=== PATIENT | female | born 1960 | race Hispanic/Latino ===

== ENCOUNTER 2021-05-02 08:46 | Emergency (ER) | payer OTHER ==
[~2021-05-02] VITALS: Ht 157.5 cm; Wt 55.8 kg
[2021-05-02 08:48] VITALS: BP 106/51
[2021-05-02 09:09] LABS: BASOPHILS % (AUTO) 0.2 % (0.0-5.0); EOSINOPHILS % (AUTO) 0.9 % (0.0-8.0); HEMATOCRIT 32.1 % (36-48); LYMPHOCYTES % (AUTO) 6.1 % (21.0-51.0); MEAN CORPUSCULAR HEMOGLOBIN 32.1 pg (27.0-33.0); MEAN CORPUSCULAR HGB CONC 31.8 g/dL (32.0-36.0); MEAN CORPUSCULAR VOLUME 100.9 fL (79-99); MONOCYTES % (AUTO) 11.1 % (3.0-13.0); NEUTROPHILS % (AUTO) 80.9 % (40.0-77.0); PLATELET COUNT (AUTO) 49 K/uL (130-400); RED BLOOD CELL COUNT(AUTO) 3.18 MIL/uL (4.00-5.50); RED CELL DISTRIBUTION WIDTH 15.1 % (11.0-15.5); WHITE BLOOD COUNT (AUTO) 10.8 K/uL (4.8-10.8)
[2021-05-02 09:20] LABS: INR 1.23 (0.85-1.15); PROTHROMBIN TIME 13.2 SEC (9.6-11.6)
[2021-05-02 09:22] LABS: CREATININE 4.7 mg/dL (0.5-1.5); PARTIAL THROMBOPLASTIN TIME 39.1 SEC (26.3-35.5); POTASSIUM 4.1 mmol/L (3.5-5.1)
[2021-05-02 09:31] LABS: B-TYPE NATRIURETIC PEPTIDE 167 pg/mL (0-100)
[2021-05-02 09:40] LABS: ALBUMIN 2.4 g/dL (3.5-5.0); BILIRUBIN,TOTAL 1.7 mg/dL (0.2-1.0); TOTAL PROTEIN, SERUM 6.8 g/dL (6.0-8.3)
[2021-05-02 10:35] VITALS: BP 108/49
[2021-05-02 12:40] VITALS: BP 112/53
[2021-05-02 15:51] VITALS: BP 99/47
[2021-05-02 17:20] LABS: APPEARANCE BODY FLUID SLIGHTLY CLOUDY (CLEAR); COLOR,BODY FLUID YELLOW (LT YELLOW); SPECIMENTYPE,BODY FLUID ASCITES; TOTAL VOLUME,BODY FLUID 9800 mL
[2021-05-02 17:21] LABS: BODY FLUID RBC 885 /cu. mm.; BODY FLUID WBC 117 /cu. mm.
[2021-05-02 17:37] LABS: BF LYMPHOCYTE 38 %; BF MESOTHELIAL 5 %; BF MONOCYTE 13 %
== END 2021-05-02 17:10 | disposition home or self-care (01) ==
LOC: EDH 08:46
DX: R18.8 Other ascites (principal); R06.00 Dyspnea, unspecified; D69.6 Thrombocytopenia, unspecified; D68.9 Coagulation defect, unspecified; E11.22 Type 2 diabetes mellitus with diabetic chronic kidney disease; N18.6 End stage renal disease; Z99.2 Dependence on renal dialysis
CPT/HCPCS: 36415; 49083; 71045; 80053; 82550; 83880; 84484; 85025; 85610; 85730; 87071; 87205; 89051; 93005; 96365; 99285; C1729; P9046

== ENCOUNTER 2021-06-02 02:00 | Inpatient (IN) | payer OTHER ==
[2021-06-02] VITALS (16 sets, daily range): BP systolic 82–128; BP diastolic 48–78
[~2021-06-02] VITALS: Ht 152.4 cm; Wt 63.9 kg
[2021-06-02 02:52] LABS: BASOPHILS % (AUTO) 0.1 % (0.0-5.0); EOSINOPHILS % (AUTO) 1.1 % (0.0-8.0); HEMATOCRIT 31.6 % (36-48); LYMPHOCYTES % (AUTO) 10.3 % (21.0-51.0); MEAN CORPUSCULAR HEMOGLOBIN 31.2 pg (27.0-33.0); MEAN CORPUSCULAR VOLUME 97.5 fL (79-99); MONOCYTES % (AUTO) 7.2 % (3.0-13.0); NEUTROPHILS % (AUTO) 79.1 % (40.0-77.0); PLATELET COUNT (AUTO) 54 K/uL (130-400); RED BLOOD CELL COUNT(AUTO) 3.24 MIL/uL (4.00-5.50); RED CELL DISTRIBUTION WIDTH 16.3 % (11.0-15.5)
[2021-06-02 03:04] LABS: CREATININE 5.7 mg/dL (0.5-1.5); POTASSIUM 4.2 mmol/L (3.5-5.1)
[2021-06-02 03:14] LABS: ALBUMIN 2.3 g/dL (3.5-5.0); BILIRUBIN,TOTAL 1.8 mg/dL (0.2-1.0); TOTAL PROTEIN, SERUM 7.5 g/dL (6.0-8.3)
[2021-06-02] MEDS ORDERED: BUMETANIDE 2.5MG/10ML VIAL IVP SCH (04:30)
[2021-06-02] MEDS ORDERED: NITROGLYCERIN 0.4 MG SL TAB SL PRN (05:00)
[2021-06-02] MEDS ORDERED: ONDANSETRON 4MG INJ IV PRN (05:00)
[2021-06-02] MEDS ORDERED: ACETAMINOPHEN 325 MG TAB PO PRN (05:00)
[2021-06-02 05:07] LABS: ABG BASE EXCESS -2.1 mmol/L (-2.0-3.0); ABG HCO3 22.9 mmol/L (21.0-28.0); ABG OXYGEN SATURATION 95.2 % (95.0-99.0); ABG PCO2 41 mmHg (32-45)
[2021-06-02 05:25] LABS: MAGNESIUM 2.1 mg/dL (1.80-2.40)
[2021-06-02 05:37] LABS: CRP QUANTITATIVE 162.5 mg/L (0.00-9.0)
[2021-06-02] MEDS ORDERED: DEXTROSE 50%-WATER 50 ML DISP.SYRIN IV PRN (08:30)
[2021-06-02] MEDS ORDERED: GLUCAGON 1MG KIT 1 MG ML IM PRN (08:30)
[2021-06-02] MEDS ORDERED: PANTOPRAZOLE 40 MG TAB DR PO SCH (09:00)
[2021-06-02] MEDS: PANTOPRAZOLE 40 MG/VIAL IVP SCH (10:15)
[2021-06-02] MEDS ORDERED: ALBUMIN (HUMAN) 25% 100 ML IV PRN (10:30)
[2021-06-02 10:33] LABS: ABG BASE EXCESS -1.6 mmol/L (-2.0-3.0); ABG HCO3 23.4 mmol/L (21.0-28.0); ABG OXYGEN SATURATION 95.2 % (95.0-99.0); ABG PCO2 41 mmHg (32-45)
[2021-06-02] MEDS ORDERED: INSULIN HUMULIN R 100 UNIT/ML 3ML SQ SCH (11:30)
[2021-06-02] MEDS: INSULIN HUMULIN R 100 UNIT/ML 3ML SQ SCH ×3 (12:00→23:50)
[2021-06-02 12:20] LABS: INR 1.32 (0.85-1.15)
[2021-06-02] MEDS: MIDODRINE HCL 5 MG TABLET NG SCH ×2 (14:59→21:15)
[2021-06-02] MEDS: CEFTRIAXONE 2GM VIAL IVP SCH (14:59)
[2021-06-02] MEDS: LACTULOSE 20 GM/30 ML UDCUP NG SCH ×2 (15:00→21:12)
[2021-06-02] MEDS: ALBUMIN (HUMAN) 25% 50 ML IV SCH ×2 (15:49→17:58)
[2021-06-02] MEDS: HEPARIN 5,000 UNIT VIAL SQ PRN (17:59)
[2021-06-02] MEDS ORDERED: RIFA550T PO (19:06)
[2021-06-02] MEDS ORDERED: METO10TA3 PO (19:06)
[2021-06-02] MEDS ORDERED: SERT-440 PO (19:06)
[2021-06-02] MEDS ORDERED: MIDO10TA PO (19:06)
[2021-06-02] MEDS ORDERED: CLON0.5T4 PO (19:06)
[2021-06-02] MEDS ORDERED: PANT20TA18 PO (19:06)
[2021-06-02] MEDS ORDERED: SPIR50TA PO (19:06)
[2021-06-02] MEDS ORDERED: LEVO500T90 PO (19:06)
[2021-06-02] MEDS ORDERED: MV-M1TAB20 PO (19:06)
[2021-06-02] MEDS ORDERED: PROP20TA7 PO (19:06)
[2021-06-02] MEDS ORDERED: FOLI0.8T21 PO (19:06)
[2021-06-03] VITALS (25 sets, daily range): BP systolic 91–136; BP diastolic 36–79
[2021-06-03] MEDS: LACTULOSE 20 GM/30 ML UDCUP NG SCH ×4 (00:37→19:26)
[2021-06-03] MEDS: ALBUMIN (HUMAN) 25% 50 ML IV SCH ×2 (00:38→06:43)
[2021-06-03 04:03] LABS: HEMATOCRIT 25.4 % (36-48); MEAN CORPUSCULAR HEMOGLOBIN 31.3 pg (27.0-33.0); MEAN CORPUSCULAR HGB CONC 32.7 g/dL (32.0-36.0); MEAN CORPUSCULAR VOLUME 95.8 fL (79-99); NUCLEATED RED BLOOD CELLS 0.4 % (0.0-0.19); RED BLOOD CELL COUNT(AUTO) 2.65 MIL/uL (4.00-5.50); RED CELL DISTRIBUTION WIDTH 16.4 % (11.0-15.5); WHITE BLOOD COUNT (AUTO) 4.6 K/uL (4.8-10.8)
[2021-06-03 04:13] LABS: ALBUMIN 2.5 g/dL (3.5-5.0); BILIRUBIN,TOTAL 1.6 mg/dL (0.2-1.0); CREATININE 4.6 mg/dL (0.5-1.5); POTASSIUM 3.7 mmol/L (3.5-5.1); TOTAL PROTEIN, SERUM 6.6 g/dL (6.0-8.3)
[2021-06-03] MEDS: INSULIN HUMULIN R 100 UNIT/ML 3ML SQ SCH ×3 (06:00→17:09)
[2021-06-03 06:12] LABS: HEPATITIS Bs ANTIGEN SCREEN P Negative (Negative)
[2021-06-03] MEDS: MIDODRINE HCL 5 MG TABLET NG SCH ×3 (09:23→20:22)
[2021-06-03] MEDS: PANTOPRAZOLE 40 MG/VIAL IVP SCH (09:23)
[2021-06-03] MEDS: BALSAM PERU/CASTOR OIL 60 GM TUBE TP SCH ×2 (15:38→19:25)
[2021-06-03] MEDS: CEFTRIAXONE 2GM VIAL IVP SCH (15:38)
[2021-06-03] MEDS: HEPARIN 5,000 UNIT VIAL SQ PRN (19:39)
[2021-06-03] MEDS: ACETAMINOPHEN 325 MG TAB PO PRN (22:09)
[2021-06-04] MEDS: LACTULOSE 20 GM/30 ML UDCUP NG SCH ×4 (00:44→19:30)
[2021-06-04 03:14] VITALS: BP 103/55
[2021-06-04 04:28] LABS: HEMATOCRIT 29.2 % (36-48); MEAN CORPUSCULAR HEMOGLOBIN 31.1 pg (27.0-33.0); MEAN CORPUSCULAR HGB CONC 30.5 g/dL (32.0-36.0); MEAN CORPUSCULAR VOLUME 102.1 fL (79-99); NUCLEATED RED BLOOD CELLS 0.4 % (0.0-0.19); PLATELET COUNT (AUTO) 41 K/uL (130-400); RED BLOOD CELL COUNT(AUTO) 2.86 MIL/uL (4.00-5.50); RED CELL DISTRIBUTION WIDTH 17.2 % (11.0-15.5); WHITE BLOOD COUNT (AUTO) 4.6 K/uL (4.8-10.8)
[2021-06-04 04:58] LABS: ALBUMIN 3.1 g/dL (3.5-5.0); BILIRUBIN,TOTAL 1.8 mg/dL (0.2-1.0); POTASSIUM 3.5 mmol/L (3.5-5.1)
[2021-06-04 05:15] LABS: LYMPHOCYTES % (MANUAL) 12 % (22-44); MAN.DIFF COMMENT-IMPRESSION MANUAL DIFFERENTIAL; MONOCYTES % (MANUAL) 12 % (2-9); PLATELET MORPHOLOGY COMMENT MARKED DECREASE; SEGMENTED NEUTROPHILS % 76 % (40-70)
[2021-06-04] MEDS: INSULIN HUMULIN R 100 UNIT/ML 3ML SQ SCH ×4 (05:41→18:00)
[2021-06-04 07:58] VITALS: BP 93/46
[2021-06-04] MEDS: PANTOPRAZOLE 40 MG/VIAL IVP SCH (08:34)
[2021-06-04] MEDS: MIDODRINE HCL 5 MG TABLET NG SCH ×3 (08:54→20:45)
[2021-06-04] MEDS: BALSAM PERU/CASTOR OIL 60 GM TUBE TP SCH ×2 (09:12→20:46)
[2021-06-04] MEDS: CEFTRIAXONE 2GM VIAL IVP SCH (09:13)
[2021-06-04 11:13] VITALS: BP 105/45
[2021-06-04 16:09] VITALS: BP 118/54
[2021-06-04 20:44] VITALS: BP 99/49
[2021-06-04 23:25] VITALS: BP 119/55
[2021-06-05] MEDS: LACTULOSE 20 GM/30 ML UDCUP NG SCH ×4 (01:30→19:30)
[2021-06-05 04:21] VITALS: BP 100/51
[2021-06-05 04:47] LABS: BASOPHILS % (AUTO) 0.2 % (0.0-5.0); HEMATOCRIT 28.6 % (36-48); MEAN CORPUSCULAR HEMOGLOBIN 31.2 pg (27.0-33.0); MEAN CORPUSCULAR HGB CONC 30.8 g/dL (32.0-36.0); MEAN CORPUSCULAR VOLUME 101.4 fL (79-99); MONOCYTES % (AUTO) 8.3 % (3.0-13.0); NEUTROPHILS % (AUTO) 78.7 % (40.0-77.0); NUCLEATED RED BLOOD CELLS 0.4 % (0.0-0.19); PLATELET COUNT (AUTO) 41 K/uL (130-400); RED BLOOD CELL COUNT(AUTO) 2.82 MIL/uL (4.00-5.50); RED CELL DISTRIBUTION WIDTH 17.6 % (11.0-15.5); WHITE BLOOD COUNT (AUTO) 5.2 K/uL (4.8-10.8)
[2021-06-05 05:17] LABS: ALBUMIN 2.4 g/dL (3.5-5.0); BILIRUBIN,TOTAL 1.6 mg/dL (0.2-1.0); CREATININE 3.8 mg/dL (0.5-1.5); MAGNESIUM 2.1 mg/dL (1.80-2.40); POTASSIUM 3.6 mmol/L (3.5-5.1); TOTAL PROTEIN, SERUM 6.6 g/dL (6.0-8.3)
[2021-06-05] MEDS: INSULIN HUMULIN R 100 UNIT/ML 3ML SQ SCH ×4 (05:53→16:27)
[2021-06-05 08:03] VITALS: BP 107/49
[2021-06-05] MEDS: CEFTRIAXONE 2GM VIAL IVP SCH (08:47)
[2021-06-05] MEDS: PANTOPRAZOLE 40 MG/VIAL IVP SCH (08:47)
[2021-06-05] MEDS: MIDODRINE HCL 5 MG TABLET NG SCH ×3 (08:47→20:01)
[2021-06-05] MEDS: BALSAM PERU/CASTOR OIL 60 GM TUBE TP SCH ×2 (08:55→21:00)
[2021-06-05 11:00] VITALS: BP_SYST 107; BP_SYST 182; BP_DIAS 57; BP_DIAS 81
[2021-06-05 16:22] VITALS: BP 110/57
[2021-06-05] MEDS: IPRATROPIUM/ALBUTEROL SULFATE 3 ML SOLUTION IH PRN (19:02)
[2021-06-05 19:55] VITALS: BP 111/59
[2021-06-05] MEDS: ACETAMINOPHEN 325 MG TAB PO PRN (20:08)
[2021-06-06] VITALS (23 sets, daily range): BP systolic 92–122; BP diastolic 43–61
[2021-06-06] MEDS: LACTULOSE 20 GM/30 ML UDCUP NG SCH ×4 (01:30→19:30)
[2021-06-06 04:07] LABS: BASOPHILS % (AUTO) 0.2 % (0.0-5.0); EOSINOPHILS % (AUTO) 1.4 % (0.0-8.0); HEMATOCRIT 27.3 % (36-48); LYMPHOCYTES % (AUTO) 11.6 % (21.0-51.0); MEAN CORPUSCULAR HEMOGLOBIN 30.3 pg (27.0-33.0); MEAN CORPUSCULAR HGB CONC 30.8 g/dL (32.0-36.0); MEAN CORPUSCULAR VOLUME 98.6 fL (79-99); NEUTROPHILS % (AUTO) 75.8 % (40.0-77.0); PLATELET COUNT (AUTO) 34 K/uL (130-400); RED BLOOD CELL COUNT(AUTO) 2.77 MIL/uL (4.00-5.50); RED CELL DISTRIBUTION WIDTH 17.7 % (11.0-15.5); WHITE BLOOD COUNT (AUTO) 4.9 K/uL (4.8-10.8)
[2021-06-06 04:33] LABS: ALBUMIN 2.5 g/dL (3.5-5.0); BILIRUBIN,TOTAL 1.4 mg/dL (0.2-1.0); CREATININE 4.7 mg/dL (0.5-1.5); MAGNESIUM 2.1 mg/dL (1.80-2.40); POTASSIUM 3.5 mmol/L (3.5-5.1); TOTAL PROTEIN, SERUM 6.8 g/dL (6.0-8.3)
[2021-06-06] MEDS: INSULIN HUMULIN R 100 UNIT/ML 3ML SQ SCH ×4 (06:00→17:24)
[2021-06-06] MEDS: IPRATROPIUM/ALBUTEROL SULFATE 3 ML SOLUTION IH PRN (06:47)
[2021-06-06] MEDS: MIDODRINE HCL 5 MG TABLET NG SCH ×3 (09:33→20:36)
[2021-06-06] MEDS: CEFTRIAXONE 2GM VIAL IVP SCH (09:33)
[2021-06-06] MEDS: PANTOPRAZOLE 40 MG/VIAL IVP SCH (09:33)
[2021-06-06] MEDS: BALSAM PERU/CASTOR OIL 60 GM TUBE TP SCH ×2 (09:42→20:37)
[2021-06-06] MEDS ORDERED: EPOETIN ALFA-EPBX (ESRD) 10,000 UNIT/ML VIAL SQ SCH (15:30)
[2021-06-07] MEDS: LACTULOSE 20 GM/30 ML UDCUP NG SCH ×4 (00:51→19:30)
[2021-06-07] MEDS: INSULIN HUMULIN R 100 UNIT/ML 3ML SQ SCH ×5 (01:13→20:05)
[2021-06-07 04:36] VITALS: BP 115/54
[2021-06-07 04:44] LABS: CREATININE 3.5 mg/dL (0.5-1.5); POTASSIUM 3.4 mmol/L (3.5-5.1)
[2021-06-07 04:45] LABS: HEMATOCRIT 29.9 % (36-48); MEAN CORPUSCULAR HEMOGLOBIN 30.9 pg (27.0-33.0); MEAN CORPUSCULAR HGB CONC 30.8 g/dL (32.0-36.0); MEAN CORPUSCULAR VOLUME 100.3 fL (79-99); NUCLEATED RED BLOOD CELLS 0.4 % (0.0-0.19); RED BLOOD CELL COUNT(AUTO) 2.98 MIL/uL (4.00-5.50); RED CELL DISTRIBUTION WIDTH 17.5 % (11.0-15.5); WHITE BLOOD COUNT (AUTO) 5.1 K/uL (4.8-10.8)
[2021-06-07 07:00] VITALS: BP 109/53
[2021-06-07] MEDS: BALSAM PERU/CASTOR OIL 60 GM TUBE TP SCH ×2 (09:58→19:52)
[2021-06-07] MEDS: MIDODRINE HCL 5 MG TABLET NG SCH ×3 (09:58→19:50)
[2021-06-07] MEDS: PANTOPRAZOLE 40 MG/VIAL IVP SCH (09:58)
[2021-06-07] MEDS: CEFTRIAXONE 2GM VIAL IVP SCH (09:58)
[2021-06-07 11:00] VITALS: BP 102/49
[2021-06-07 16:00] VITALS: BP 112/59
[2021-06-07] MEDS ORDERED: GLUCAGON 1MG KIT 1 MG ML IM PRN (20:00)
[2021-06-07 20:08] VITALS: BP 99/49
[2021-06-07 23:42] VITALS: BP 113/49
[2021-06-08] VITALS (20 sets, daily range): BP systolic 96–118; BP diastolic 42–70
[2021-06-08] MEDS: LACTULOSE 20 GM/30 ML UDCUP NG SCH ×4 (00:32→20:24)
[2021-06-08] MEDS: INSULIN HUMULIN R 100 UNIT/ML 3ML SQ SCH ×4 (05:24→20:38)
[2021-06-08] MEDS: PANTOPRAZOLE 40 MG/VIAL IVP SCH (09:26)
[2021-06-08] MEDS: BALSAM PERU/CASTOR OIL 60 GM TUBE TP SCH ×2 (09:26→20:40)
[2021-06-08] MEDS: CEFTRIAXONE 2GM VIAL IVP SCH (09:26)
[2021-06-08] MEDS: MIDODRINE HCL 5 MG TABLET NG SCH ×3 (09:26→20:24)
[2021-06-09] MEDS: LACTULOSE 20 GM/30 ML UDCUP NG SCH ×3 (01:30→13:44)
[2021-06-09 04:00] VITALS: BP 117/49
[2021-06-09 04:39] LABS: HEMATOCRIT 28.8 % (36-48); MEAN CORPUSCULAR HEMOGLOBIN 30.8 pg (27.0-33.0); MEAN CORPUSCULAR HGB CONC 30.6 g/dL (32.0-36.0); MEAN CORPUSCULAR VOLUME 100.7 fL (79-99); PLATELET COUNT (AUTO) 29 K/uL (130-400); RED BLOOD CELL COUNT(AUTO) 2.86 MIL/uL (4.00-5.50); RED CELL DISTRIBUTION WIDTH 17.7 % (11.0-15.5); WHITE BLOOD COUNT (AUTO) 4.1 K/uL (4.8-10.8)
[2021-06-09 04:48] LABS: CREATININE 3.4 mg/dL (0.5-1.5); POTASSIUM 3.7 mmol/L (3.5-5.1)
[2021-06-09 05:33] LABS: EOSINOPHILS % (MANUAL) 2 % (1-6); LYMPHOCYTES % (MANUAL) 8 % (22-44); MONOCYTES % (MANUAL) 2 % (2-9); REACTIVE LYMPHOCYTES 2 % (0-0); SEGMENTED NEUTROPHILS % 86 % (40-70)
[2021-06-09 05:35] LABS: MAN.DIFF COMMENT-IMPRESSION MANUAL DIFFERENTIAL
[2021-06-09 05:36] LABS: PLATELET MORPHOLOGY COMMENT MARKED DECREASE
[2021-06-09] MEDS: INSULIN HUMULIN R 100 UNIT/ML 3ML SQ SCH ×3 (05:37→17:36)
[2021-06-09 08:00] VITALS: BP 117/58
[2021-06-09] MEDS: PANTOPRAZOLE 40 MG/VIAL IVP SCH (10:43)
[2021-06-09] MEDS: MIDODRINE HCL 5 MG TABLET NG SCH ×2 (10:43→13:44)
[2021-06-09] MEDS: CEFTRIAXONE 2GM VIAL IVP SCH (10:43)
[2021-06-09] MEDS: BALSAM PERU/CASTOR OIL 60 GM TUBE TP SCH (10:44)
[2021-06-09 12:00] VITALS: BP 113/53
[2021-06-09 16:00] VITALS: BP 110/50
== END 2021-06-09 18:35 | disposition hospice, home (50) | DRG 291 ==
LOC: EDH 02:00 → OBSVTOIN 04:43 → EDHIP 04:43 → 4AH 09:19
PROVIDERS: ADMIT Internal Medicine Critical Care Medicine; ATTEND Internal Medicine Critical Care Medicine
PROC: 5A1D70Z Performance of Urinary Filtration, Intermittent, Less than 6 Hours Per Day (ICD-10-PCS; principal; 2021-06-02)
PROC: 5A1D70Z Performance of Urinary Filtration, Intermittent, Less than 6 Hours Per Day (ICD-10-PCS; 2021-06-03)
PROC: 5A1D70Z Performance of Urinary Filtration, Intermittent, Less than 6 Hours Per Day (ICD-10-PCS; 2021-06-06)
PROC: 5A1D70Z Performance of Urinary Filtration, Intermittent, Less than 6 Hours Per Day (ICD-10-PCS; 2021-06-08)
DX: I13.2 Hypertensive heart and chronic kidney disease with heart failure and with stage 5 chronic kidney disease, or end stage renal disease (principal); I50.33 Acute on chronic diastolic (congestive) heart failure; J96.01 Acute respiratory failure with hypoxia; N18.6 End stage renal disease; G93.41 Metabolic encephalopathy; E87.1 Hypo-osmolality and hyponatremia; R18.8 Other ascites; K74.60 Unspecified cirrhosis of liver; E11.22 Type 2 diabetes mellitus with diabetic chronic kidney disease; Z66 Do not resuscitate; D69.59 Other secondary thrombocytopenia; E78.00 Pure hypercholesterolemia, unspecified; E87.70 Fluid overload, unspecified; R53.81 Other malaise; I95.89 Other hypotension; E88.09 Other disorders of plasma-protein metabolism, not elsewhere classified; D64.9 Anemia, unspecified; F03.90 Unspecified dementia, unspecified severity, without behavioral disturbance, psychotic disturbance, mood disturbance, and anxiety; K72.10 Chronic hepatic failure without coma; Z99.2 Dependence on renal dialysis; Z79.899 Other long term (current) drug therapy; Z91.15 Patient's noncompliance with renal dialysis; Z91.19 Patient's noncompliance with other medical treatment and regimen
CPT/HCPCS: 36415; 36600; 70450; 71045; 80048; 80053; 82140; 82435; 82533; 82550; 82803; 82947; 82948; 83036; 83605; 83735; 83874; 83880; 84132; 84295; 84443; 84484; 85018; 85025; 85027; 85610; 85730; 86140; 86704; 86706; 87040; 87340; 90935; 92610; 93005; 94640; 94664; 94760; 97039; C9113; G0378; J0696; J1644; J1815; J3490; P9046; P9047